=== PATIENT | male | born 1965 | race Asian ===

== ENCOUNTER 2018-06-04 10:11 | Inpatient (IN) | payer MEDICAID, OTHER ==
[~2018-06-04] VITALS: Ht 154.9 cm; Wt 68.5 kg
[2018-06-04 11:00] VITALS: BP 127/82
[2018-06-04 11:15] VITALS: BP 127/82
--- NOTE | 2018-06-04 11:15 | NUR ---
MS NETWORK SUPPORT ENGINEER Patient brought in via [place]/ambulance from outside hosp. ([facility]). Patient is A/O x4, ambulates independently. Oxygen sat. 98% on RA, tolerating well. IVC in right hand present upon initial assessment, inserted from outside hosp. Skin check done with Gabby/SAMANTHA, skin intact. Left leg presence of GPS monitor, instruction to call officer Tom if monitor needs to be removed. Orientation to room, unit, staff. Place call light within reach. Will cont to monitor.
[2018-06-04] MEDS ORDERED: ONDANSETRON HCL/PF 4 MG/2 ML VIAL IVP PRN (12:00)
[2018-06-04] MEDS ORDERED: HYDROCODONE/APAP 5/325MG 1 EACH TABLET PO PRN (12:00)
[2018-06-04] MEDS ORDERED: MAGNESIUM HYDROXIDE 30 ML UDC PO PRN (12:00)
[2018-06-04] MEDS ORDERED: MAG HYDROX/AL HYDROX/SIMETH 30 ML UDC PO PRN (12:00)
[2018-06-04] MEDS ORDERED: ZOLPIDEM TARTRATE 5 MG TABLET PO PRN (12:00)
[2018-06-04] MEDS ORDERED: Z GUARD REMEDY 2 OZ OINT TP PRN (12:00)
[2018-06-04] MEDS ORDERED: ACETAMINOPHEN 325 MG TABLET PO PRN (12:00)
[2018-06-04] MEDS: IV D5/0.45 NACL 1,000 ML IV PRN ×2 (12:36→21:57)
[2018-06-04 13:30] LABS: BASOPHILS % (AUTO) 0.2 % (0.0-2.0); EOSINOPHILS % (AUTO) 2.1 % (0.0-6.0); HEMATOCRIT 39 % (39-51); HEMOGLOBIN 13.2 g/dL (13.5-17.5); LYMPHOCYTES # (AUTO) 2.3 /CMM (0.8-4.8); LYMPHOCYTES % (AUTO) 26.9 % (20.0-44.0); MEAN CORPUSCULAR HGB CONC 34 g/dl (31.0-36.0); MEAN CORPUSCULAR VOLUME 91 fL (80-96); MONOCYTES # (AUTO) 0.6 /CMM (0.1-1.30); MONOCYTES % (AUTO) 6.7 % (2.0-12.0); NEUTROPHILS # (AUTO) 5.5 /CMM (1.8-8.9); NEUTROPHILS % (AUTO) 64.1 % (43.0-81.0); PLATELET COUNT (AUTO) 301 /CMM (150-450); RED BLOOD CELL COUNT(AUTO) 4.29 MIL/uL (4.5-6.0); WHITE BLOOD COUNT (AUTO) 8.6 K/uL (4.3-11.0)
[2018-06-04 13:46] LABS: ALBUMIN 3.3 g/dL (3.4-5.0); BILIRUBIN,TOTAL 0.6 mg/dL (0.2-1.0); CALCIUM, SERUM 8.7 mg/dL (8.5-10.1); MAGNESIUM 1.6 mg/dL (1.8-2.4); POTASSIUM 3.7 mmol/L (3.5-5.1); TOTAL PROTEIN, SERUM 6.8 g/dL (6.4-8.2)
[2018-06-04 16:00] VITALS: BP 125/82
[2018-06-04] MEDS ORDERED: Magnesium 1GM/D5W 100ML PREMIX 100 ML IV SCH (16:00)
--- NOTE | 2018-06-04 18:21 | NUR ---
MS RN CLOSING NOTES Patient ambulates independently, denies pain. Currently NPO except meds. IVF infusing, maintained at 150ml/hr. Dr. Cochran/Surgeon for consult. Patient is on probation, has left leg monitoring device in place, instruction to call officer Tom for removal of ankle monitoring device if needed for imaging or procedures. Will endorse to oncoming RN.
--- NOTE | 2018-06-04 19:20 | NUR ---
RN NOTES RECEIVED PATIENT AWAKE, HOB ELEVATED, ON ROOM AIR AND TOLERATED WELL. PATIENT ALERT AND ORIENTED X4, DENIES ABDOMINAL PAIN, NAUSEA AND VOMITING AT THIS TIME. KEPT PATIENT ON NPO. IV ACCESS ON RIGHT HAND PATENT AND INTACT WITH ONGOING IVF INFUSING WELL.PLAN OF CARE DISCUSSED WITH THE PT AND VERBALIZED UNDERSTANDING. WILL CONTINUE TO MONITOR PT.
[2018-06-04 20:00] VITALS: BP 124/74
[2018-06-04] MEDS ORDERED: LORAZEPAM INJ 2 MG/ML VIAL IV PRN (20:00)
[2018-06-04] MEDS ORDERED: NA PHOS,M-B/NA PHOS,DI-BA 1 EA ENEMA RC PRN (20:00)
--- NOTE | 2018-06-04 20:30 | NUR ---
RN NOTES FLEET ENEMA ADMINISTERED ORDERED, HAD BM MODERATED AMOUNT. PATIENT START COMPLAINING OF RECTAL PAIN BECAUSE OF HEMORRHOIDS. WILL CONTINUE TO MONITOR PATIENT.
[2018-06-04] MEDS ORDERED: HYDROCORTISONE CR 30 GM TUBE RC PRN (21:30)
[2018-06-04 22:00] VITALS: BP 124/74
--- NOTE | 2018-06-04 22:00 | NUR ---
RN NOTES ATIVAN GIVEN IVP PRIOR TO NGT PLACEMENT.
--- NOTE | 2018-06-04 22:25 | NUR ---
RN NOTES AFTER FLEET ENEMA PATIENT HAD X1BM ONLY. TAP WATER ENEMA NOT ADMINISTERED BECAUSE PATIENT IS COMPLAINING RECTAL PAIN DUE TO HEMORRHOIDS. PATIENT AGREED TO PLACE THE NGT INSTEAD, PROCEDURE WAS EXPLAINED TO THE PT AND VERBALIZED UNDERSTANDING. WHILE INSERTING NGT PATIENT IS VERY ANXIOUS, AND TRYING TO STOP THE NURSE TO INSERT, PATIENT IS PULLING OUT THE TUBE BECAUSE HE CANNOT TOLERATE THE PROCEDURE, AND VERBALIZED HE'S NOT COMFORTABLE WITH IT. PATIENT REFUSED FOR THE NGT PLACEMENT, RISK AND BENEFITS WERE EXPLAINED AND PATIENT STRONGLY REFUSED. HE ONLY WANTS IT INSERTED IF HE IS TOTALLY KNOCKED DOWN OR SLEEPING, [employer] RELATIONS COORDINATOR AWARE.
[2018-06-05] MEDS: IV D5/0.45 NACL 1,000 ML IV PRN (05:48)
--- NOTE | 2018-06-05 06:28 | NUR ---
RN NOTES PATIENT SLEPT WELL OVERNIGHT, VITAL SIGNS STABLE. DENIES PAIN, NAUSEA AND VOMITING. HAD 1 BM AFTER FLEET ENEMA AND VERBALIZED HE FEELS BETTER. PT STABLE OVERNIGHT. WILL CONTINUE TO MONITOR.
[2018-06-05 06:54] LABS: CALCIUM, SERUM 8.5 mg/dL (8.5-10.1); CREATININE 1.1 mg/dL (0.6-1.3); MAGNESIUM 1.8 mg/dL (1.8-2.4)
[2018-06-05 07:02] LABS: BASOPHILS % (AUTO) 0.3 % (0.0-2.0); EOSINOPHILS % (AUTO) 3.5 % (0.0-6.0); HEMATOCRIT 37 % (39-51); HEMOGLOBIN 12.6 g/dL (13.5-17.5); LYMPHOCYTES % (AUTO) 32.4 % (20.0-44.0); MEAN CORPUSCULAR HGB CONC 34 g/dl (31.0-36.0); MEAN CORPUSCULAR VOLUME 91 fL (80-96); MONOCYTES # (AUTO) 0.5 /CMM (0.1-1.30); MONOCYTES % (AUTO) 7.5 % (2.0-12.0); NEUTROPHILS # (AUTO) 3.5 /CMM (1.8-8.9); NEUTROPHILS % (AUTO) 56.3 % (43.0-81.0); PLATELET COUNT (AUTO) 278 /CMM (150-450); RED BLOOD CELL COUNT(AUTO) 4.09 MIL/uL (4.5-6.0); WHITE BLOOD COUNT (AUTO) 6.1 K/uL (4.3-11.0)
--- NOTE | 2018-06-05 07:38 | NUR ---
MS/RN OPENING NOTE PATIENT IN BED IN STABLE CONDITION. A/O X 4. NO SIGNS OF ACUTE DISTRESS. NO COMPLAIN OF PAIN OR DISCOMFORT. NPO STATUS AT THIS TIME SECONDARY TO POSSIBLE PARTIAL SMALL BOWEL OBSTRUCTION. ALL NEEDS ATTENDED TO. CALL LIGHT WITHIN REACH. WILL CONTINUE TO MONITOR TO ENSURE SAFETY.
[2018-06-05 08:00] VITALS: BP 106/62
[2018-06-05] MEDS ORDERED: DIATR MEGLU/DIATRIZOATE SODIUM 120 ML BOTTLE (GASTROGRAPHIN) ONE (09:14)
--- NOTE | 2018-06-05 10:12 | NUR ---
BRANDON was informed by Med Surg 3 MIGUELITO Arango that pt. is on probation and his lead front desk agent is office Tom . BRANDON called Officer Tom, however was unable to leave a message since his voicemail is full. SW to attempt again later in the day.
--- NOTE | 2018-06-05 11:30 | NUR ---
MS/RN PAGED WOOL PULLER MELCHOR FOR DR WYLIE TO RELAY PATIENT'S SMALL BOWEL X RAY RESULTS. PER WOOL PULLER MELCHOR, "CAN BE DISCHARGED FROM SURGICAL STANDPOINTS." PATIENT AWARE. PAGED DR TORRES.
--- NOTE | 2018-06-05 12:42 | NUR ---
MS/RN SPOKE WITH DR HUNTER AND RELAYED PATIENT'S SMALL BOWEL XRAY RESULTS AND PER PARENT PARTNER MELCHOR SURGEON INESSA PARENT PARTNER OKAY TO BE DISCHARGED FROM SURGERY STANDPOINT, CLEAR LIQUIDS DIET AND ADVANCE TOLERATED. PER DR ELSA CHAKRABORTY TO DISCHARGE PATIENT HOME. ORDERS NOTED AND CARRIED OUT.
--- NOTE | 2018-06-05 13:28 | NUR ---
Patient lives in [place]. He is ambulatory and independent with adl's. Has no DME or homehealth reported. Per nurse, patient is is on probation and his collection agent is thomas Santos . No dc planning needs identified at this time. Addendum: 06/05/18 at 1653 by RODRIGO ALVARES RN Amended: Links added.
--- NOTE | 2018-06-05 13:49 | NUR ---
MS/FUELS SALES REPRESENTATIVE PATIENT DISCHARGE HOME IN STABLE CONDITION. A/O X 4. NO SIGNS OF ACUTE DISTRESS. NO COMPLAIN OF PAIN OR DISCOMFORT. DISCHARGE INSTRUCTIONS AND EDUCATION PROVIDED, VERBALIZED UNDERSTANDING. MADE AWARE TO FOLLOW UP WITH PRIMARY PHYSICIAN WITHIN A WEEK. TO ADVANCE DIET TOLERATED. ALL NEEDS ATTENDED TO. NAME BAND AND IV LINE REMOVED. LEFT IN STABLE CONDITION ACCOMPANIED BY FAMILY RELATIVE.
== END 2018-06-05 13:45 | disposition home or self-care (01) | DRG 247 ==
LOC: MED 10:29
PROVIDERS: ADMIT Student in an Organized Health Care Education/Training Program; ATTEND Student in an Organized Health Care Education/Training Program
DX: K56.600 Partial intestinal obstruction, unspecified as to cause (principal); E44.1 Mild protein-calorie malnutrition; E83.42 Hypomagnesemia; D64.9 Anemia, unspecified; K64.9 Unspecified hemorrhoids; N26.1 Atrophy of kidney (terminal); Z98.890 Other specified postprocedural states; F41.9 Anxiety disorder, unspecified; E78.5 Hyperlipidemia, unspecified; Z90.49 Acquired absence of other specified parts of digestive tract
CPT/HCPCS: 36415; 74250-TC; 80048-TC; 80053-TC; 80061-TC; 82962-TC; 83690-TC; 83735-TC; 85025-TC; 85730-TC; 87081-TC; G0378; J2060; J3475; J3490; Q9963